=== PATIENT | female | born 1965 | race African-American/Black ===

== ENCOUNTER 2019-01-08 10:49 | Day surgery (SDC) | payer OTHER ==
[2019-01-08] MEDS ORDERED: FENTAnyl 50 MCG/ML VIAL (12:54)
[2019-01-08] MEDS ORDERED: MIDAZOLAM 1 MG/ML 2 ML INJ ×2 (12:54)
== END 2019-01-08 14:57 | disposition home or self-care (01) ==
LOC: GIL 10:49
DX: Z12.11 Encounter for screening for malignant neoplasm of colon (principal)
CPT/HCPCS: 45378; 88305